=== PATIENT | male | born 1970 | race Two or more races ===

== ENCOUNTER 2022-06-22 23:14 | Emergency (ER) | payer OTHER ==
[~2022-06-22] VITALS: Ht 180.3 cm; Wt 72.0 kg
[2022-06-22 23:14] VITALS: BP 125/84
== END 2022-06-23 00:51 ==
LOC: ER 23:14
DX: F17.210 Nicotine dependence, cigarettes, uncomplicated; Z88.0 Allergy status to penicillin; V43.52XA Car driver injured in collision with other type car in traffic accident, initial encounter; Y93.89 Activity, other specified; Y92.410 Unspecified street and highway as the place of occurrence of the external cause; Y99.8 Other external cause status